=== PATIENT | female | born 1980 | race Caucasian/White ===

== ENCOUNTER 2023-02-09 12:12 | Outpatient (CLI) | payer BC ==
[2023-02-09 13:22] LABS: #Eosinphils 0.1 10x3/uL (0.0-0.5); #Monocytes 0.4 10x3/uL (0.0-1.1); #Neutrophils 1.9 10x3/uL (1.5-8.4); %Basophils 0.5 % (0.0-2.0); %Eosinophils 2.5 % (0.0-6.0); %Lymphocytes 45.9 % (18.0-47.0); %Monocytes 7.9 % (0.0-10.0); %Neutrophils 42.7 % (40.0-75.0); Hematocrit 34.7 % (34.9-44.5); Hemoglobin 11.9 g/dL (12.0-15.5); Mean Corpuscular HGB CONC 34.3 g/dL (32.0-36.0); Mean Corpuscular Hemoglobin 37.1 pg (27.0-33.0); Mean Corpuscular Volume 108.1 fl (81.6-98.3); Mean Platelet Volume 8.5 fl (7.4-10.4); Platelet Count 255 10x3/uL (150-450); RBC Distribution Width 12.6 % (11.5-14.5); Red Blood Cell (RBC) Count 3.21 10x6/uL (3.90-5.03); White Blood Cell (WBC) Count 4.4 10x3/uL (3.5-10.5)
[2023-02-09 13:32] LABS: ALT (SGPT) 12 U/L (8-55); AST (SGOT) 16 U/L (5-34); Albumin 3.7 g/dL (3.5-5.0); Alkaline Phosphatase 60 U/L (40-110); Anion Gap 9 mmol/L (10-20); BUN (Urea Nitrogen) 7 mg/dL (7.0-18.7); Bilirubin, Total 0.6 mg/dL (0.2-1.2); Calc. Creatinine Clearance 0 mL/min (70-130); Calcium 8.7 mg/dL (7.8-10.44); Carbon Dioxide 26 mmol/L (22-29); Chloride 103 mmol/L (98-107); Estimated GFR 66; Globulin 7.1 g/dL (2.4-3.5); Glucose 74 mg/dL (70-105); Protein, Total 10.8 g/dL (6.0-8.3); Sodium 134 mmol/L (136-145)
== END 2023-02-09 12:13 | disposition home or self-care (01) ==
LOC: LABBT 12:12
PROVIDERS: ATTEND Surgery
DX: Z01.812 Encounter for preprocedural laboratory examination (principal); K64.9 Unspecified hemorrhoids
CPT/HCPCS: 80053; 85025

== ENCOUNTER 2023-02-13 09:00 | Day surgery (SDC) | payer BC ==
[2023-02-09 12:43] VITALS: BMI 23.4
[2023-02-13] MEDS ORDERED: Lidocaine 1% PF 5 ML VIAL ONE ×2 (09:06→10:18)
[2023-02-13] MEDS ORDERED: Rocuronium Bromide 10 MG/ML (10ML VIAL) ONE ×2 (09:06→10:18)
[2023-02-13] MEDS ORDERED: fentaNYL PF 100 MCG/2 ML SYRINGE ONE (09:06)
[2023-02-13] MEDS ORDERED: PROPOFOL 20 ML ONE (09:06)
[2023-02-13] MEDS ORDERED: EPINEPHrine 1 MG/ML VIAL ONE (09:49)
[2023-02-13] MEDS ORDERED: Bacitracin Zinc Ointment 30 gm TUBE ONE (09:49)
[2023-02-13] MEDS ORDERED: Bupivacaine 0.25% HCL 30 ML VIAL ONE (09:49)
[2023-02-13] MEDS ORDERED: cefOXitin 2 GM VIAL ONE (10:02)
[2023-02-13] MEDS ORDERED: Sodium Chloride 0.9% 100 ML ONE (10:02)
[2023-02-13] MEDS ORDERED: Ondansetron PF 4 MG/2 ML Vial ONE ×3 (10:18→11:24)
[2023-02-13] MEDS ORDERED: Dexamethasone 20 MG/5 ML VIAL ONE ×2 (10:18→10:28)
[2023-02-13] MEDS ORDERED: PROPOFOL 200 MG/20 ML VIAL ONE (10:18)
[2023-02-13] MEDS ORDERED: SUGAMMADEX SODIUM 200 MG/2 ML VIAL ONE (10:45)
[2023-02-13] MEDS ORDERED: Meperidine HCl/PF 25 MG/ML VIAL ONE (11:03)
== END 2023-02-13 13:05 | disposition home or self-care (01) ==
LOC: SDC 09:00
PROVIDERS: ATTEND Surgery
PROC: 06BY3ZC Excision of Hemorrhoidal Plexus, Percutaneous Approach (ICD-10-PCS; principal; 2023-02-13)
DX: K64.2 Third degree hemorrhoids (principal); F17.290 Nicotine dependence, other tobacco product, uncomplicated; Z79.899 Other long term (current) drug therapy; Z90.710 Acquired absence of both cervix and uterus
CPT/HCPCS: 88304; J0171; J0694; J1100; J2175; J2405; J2704; J3490; S0020